=== PATIENT | male | born 1975 | race Caucasian/White ===

== ENCOUNTER 2018-03-20 17:31 | Emergency (ER) | payer OTHER ==
[~2018-03-20] VITALS: Ht 170.2 cm; Wt 72.6 kg
[~2018-03-20 17:31] MED LIST: CHLO25 PO; CLIN300 PO; CYCL10 PO; HYDACE5 PO; Hair, Skin & N1 EACH PO; IBUP800 PO; LEVE500 PO; LEVFLO500 PO; LORA1 PO; NAPR500 PO; NAPROXEN; Norco 7.5-3251 EACH PO; ROXICODONE5 MG PO; SEIZURE MED; Ultram50 MG PO
[2018-03-20] MEDS ORDERED: IBUP400 PO (18:21)
== END 2018-03-20 19:03 | disposition home or self-care (01) ==
LOC: ER 17:31
DX: M79.644 Pain in right finger(s) (principal); M79.89 Other specified soft tissue disorders; G40.909 Epilepsy, unspecified, not intractable, without status epilepticus; F17.200 Nicotine dependence, unspecified, uncomplicated; Z79.899 Other long term (current) drug therapy
CPT/HCPCS: 73130

== ENCOUNTER 2018-06-13 10:58 | Emergency (ER) | payer OTHER ==
[~2018-06-13] VITALS: Ht 170.2 cm; Wt 72.6 kg
[~2018-06-13 10:58] MED LIST changes: +IBUP400 PO
[2018-06-13] MEDS ORDERED: Baclofen10 MG PO (11:54)
[2018-06-13] MEDS ORDERED: Ultram50 MG PO (11:54)
== END 2018-06-13 12:05 | disposition home or self-care (01) ==
LOC: ER 10:58
DX: S29.012A Strain of muscle and tendon of back wall of thorax, initial encounter (principal); Z87.891 Personal history of nicotine dependence; X58.XXXA Exposure to other specified factors, initial encounter
CPT/HCPCS: 99282

== ENCOUNTER 2019-07-26 07:43 | Emergency (ER) | payer OTHER ==
[~2019-07-26] VITALS: Ht 170.2 cm; Wt 79.4 kg
[~2019-07-26 07:43] MED LIST changes: +Baclofen10 MG PO; +Keppra750 MG PO
[2019-07-26] MEDS ORDERED: Ultram50 MG PO (07:57)
[2019-07-26] MEDS ORDERED: CYCL10 PO (07:58)
[2019-07-26] MEDS ORDERED: Robaxin750 MG PO (07:58)
[2019-07-26 08:44] LABS: BASOPHILS ABSOLUTE AUTO 0.09 K/mm3 (0.00-0.23); BASOPHILS PERCENT AUTO 0 % (0-2); EOSINOPHILS PERCENT AUTO 0 % (0-6); Hematocrit 45.4 % (37.0-53.0); Hemoglobin 16.1 g/dL (13.5-17.5); IMMATURE GRAN ABSOLUTE AUTO 0.17 K/mm3 (0.00-0.10); IMMATURE GRAN PERCENT AUTO 1 % (0-1); LYMPHOCYTES ABSOLUTE AUTO 1.36 K/mm3 (0.84-5.20); LYMPHOCYTES PERCENT AUTO 5 % (21-46); MONOCYTES ABSOLUTE AUTO 1.39 K/mm3 (0.16-1.47); MONOCYTES PERCENT AUTO 5 % (4-13); Mean Corpuscular HGB 31.5 pg (26.0-34.0); Mean Corpuscular HGB Conc 35.5 g/dL (31.5-36.5); Mean Corpuscular Volume 89 fL (80-100); Mean Platelet Volume 9.1 fL (9.1-12.4); NEUTROPHILS ABSOLUTE AUTO 22.65 K/mm3 (1.96-9.15); NEUTROPHILS PERCENT AUTO 88 % (41-73); Platelet Count 458 K/mm3 (150-400); RDW Coefficient Variation 11.3 % (11.7-14.2); RDW Standard Deviation 36.4 fL (35.1-46.3); Red Blood Cell Count 5.11 M/mm3 (4.30-5.90); White Blood Cell Count 25.66 K/mm3 (4.00-11.30)
[2019-07-26 09:07] LABS: Alanine Aminotransfer (ALT/SGP 47 U/L (12-78); Albumin, Blood 4.4 g/dL (3.4-5.0); Albumin/Globulin Ratio 1.3 (0.8-1.8); Alk Phos 103 U/L (50-136); Anion Gap 10 mmol/L (6-16); Aspartate Aminotrans (AST/SGOT 48 U/L (12-37); Bilirubin, Total 0.8 mg/dL (0.1-1.0); Blood Urea Nitrogen 11 mg/dL (8-24); Bun/Creatinine Ratio 10.5 (12.0-20.0); CO2, Blood 23 mmol/L (21-32); Calcium, Blood 8.3 mg/dL (8.5-10.1); Chloride, Blood 104 mmol/L (98-108); Creatinine, Blood 1.05 mg/dL (0.60-1.20); Ethanol (Alcohol), Blood, Med <3 mg/dL; Globulin, Blood 3.3 g/dL (2.2-4.0); Glomerular Filtration Rate >60 (60-); Glucose, Blood 110 mg/dL (70-99); Potassium, Blood 3.5 mmol/L (3.5-5.5); Sodium, Blood 137 mmol/L (136-145); Total Protein, Blood 7.7 g/dL (6.4-8.2)
== END 2019-07-26 10:30 | disposition home or self-care (01) ==
LOC: ER 07:43
PROVIDERS: Emergency Medicine
DX: G40.909 Epilepsy, unspecified, not intractable, without status epilepticus (principal); Z79.899 Other long term (current) drug therapy; Z79.891 Long term (current) use of opiate analgesic; Z87.891 Personal history of nicotine dependence
CPT/HCPCS: 36415; 80053; 85025; 93005; 93010; 96361; 96365; 99284-25; G0480; J1953; J7030

== ENCOUNTER 2020-07-24 16:59 | Inpatient (IN) | payer OTHER ==
[~2020-07-24] VITALS: Ht 170.2 cm; Wt 71.9 kg
[~2020-07-24 16:59] MED LIST changes: +Robaxin750 MG PO
[2020-07-24 17:47] LABS: BASOPHILS ABSOLUTE AUTO 0.04 K/mm3 (0.00-0.23); BASOPHILS PERCENT AUTO 1 % (0-2); EOSINOPHILS ABSOLUTE AUTO 0.02 K/mm3 (0.00-0.68); EOSINOPHILS PERCENT AUTO 0 % (0-6); Hematocrit 38.1 % (37.0-53.0); Hemoglobin 13.3 g/dL (13.5-17.5); IMMATURE GRAN ABSOLUTE AUTO 0.44 K/mm3 (0.00-0.10); IMMATURE GRAN PERCENT AUTO 5 % (0-1); LYMPHOCYTES ABSOLUTE AUTO 1.01 K/mm3 (0.84-5.20); LYMPHOCYTES PERCENT AUTO 12 % (21-46); MONOCYTES ABSOLUTE AUTO 0.51 K/mm3 (0.16-1.47); MONOCYTES PERCENT AUTO 6 % (4-13); Mean Corpuscular HGB 36.1 pg (26.0-34.0); Mean Corpuscular HGB Conc 34.9 g/dL (31.5-36.5); Mean Corpuscular Volume 104 fL (80-100); Mean Platelet Volume 11.1 fL (9.1-12.4); NEUTROPHILS ABSOLUTE AUTO 6.71 K/mm3 (1.96-9.15); NEUTROPHILS PERCENT AUTO 77 % (41-73); NRBC ABSOLUTE 0.06 K/mm3 (0.00-0.02); NRBC Auto 0.7 /100 WBC (0.0-0.2); Platelet Count 144 K/mm3 (150-400); RDW Coefficient Variation 15.5 % (11.7-14.2); RDW Standard Deviation 59.4 fL (35.1-46.3); Red Blood Cell Count 3.68 M/mm3 (4.30-5.90); White Blood Cell Count 8.73 K/mm3 (4.00-11.30)
[2020-07-24] MEDS ORDERED: NEURONTIN300 MG PO (18:56)
[2020-07-24] MEDS ORDERED: Mobic15 MG PO (18:56)
[2020-07-24] MEDS ORDERED: GABA300 PO (18:56)
[2020-07-24 19:32] LABS: Albumin, Blood 2.8 g/dL (3.4-5.0); Albumin/Globulin Ratio 0.8 (0.8-1.8); Bilirubin, Direct 32.5 mg/dL (0.0-0.3); Bilirubin, Indirect 7.3 mg/dL (0.1-0.7); Bilirubin, Total 39.8 mg/dL (0.1-1.0); Bun/Creatinine Ratio 10.6 (12.0-20.0); Creatinine, Blood 1.6 mg/dL (0.60-1.20); Globulin, Blood 3.3 g/dL (2.2-4.0); Potassium, Blood 4.2 mmol/L (3.5-5.5); Total Protein, Blood 6.1 g/dL (6.4-8.2)
[2020-07-24 22:26] LABS: International Normalized Ratio 1.49; Prothrombin Time Results 15.6 Sec (9.7-11.5)
[2020-07-25 03:56] LABS: BASOPHILS ABSOLUTE AUTO 0.04 K/mm3 (0.00-0.23); BASOPHILS PERCENT AUTO 0 % (0-2); EOSINOPHILS ABSOLUTE AUTO 0.01 K/mm3 (0.00-0.68); EOSINOPHILS PERCENT AUTO 0 % (0-6); Hematocrit 29.9 % (37.0-53.0); Hemoglobin 10.5 g/dL (13.5-17.5); IMMATURE GRAN ABSOLUTE AUTO 0.46 K/mm3 (0.00-0.10); IMMATURE GRAN PERCENT AUTO 4 % (0-1); LYMPHOCYTES ABSOLUTE AUTO 1.23 K/mm3 (0.84-5.20); LYMPHOCYTES PERCENT AUTO 11 % (21-46); MONOCYTES ABSOLUTE AUTO 1.01 K/mm3 (0.16-1.47); MONOCYTES PERCENT AUTO 9 % (4-13); Mean Corpuscular HGB 36.5 pg (26.0-34.0); Mean Corpuscular HGB Conc 35.1 g/dL (31.5-36.5); Mean Corpuscular Volume 104 fL (80-100); Mean Platelet Volume 11.6 fL (9.1-12.4); NEUTROPHILS PERCENT AUTO 75 % (41-73); NRBC ABSOLUTE 0.07 K/mm3 (0.00-0.02); NRBC Auto 0.6 /100 WBC (0.0-0.2); Platelet Count 109 K/mm3 (150-400); RDW Coefficient Variation 15.2 % (11.7-14.2); RDW Standard Deviation 57.3 fL (35.1-46.3); Red Blood Cell Count 2.88 M/mm3 (4.30-5.90); White Blood Cell Count 11.15 K/mm3 (4.00-11.30)
[2020-07-25 04:31] LABS: Albumin, Blood 2.2 g/dL (3.4-5.0); Albumin/Globulin Ratio 0.9 (0.8-1.8); Bilirubin, Total 33.3 mg/dL (0.1-1.0); Bun/Creatinine Ratio 11.9 (12.0-20.0); Calcium, Blood 7.8 mg/dL (8.5-10.1); Creatinine, Blood 1.85 mg/dL (0.60-1.20); Globulin, Blood 2.4 g/dL (2.2-4.0); Potassium, Blood 4.3 mmol/L (3.5-5.5); Total Protein, Blood 4.6 g/dL (6.4-8.2)
[2020-07-25 12:48] LABS: Alanine Aminotransfer (ALT/SGP 124 U/L (12-78); Albumin, Blood 2.2 g/dL (3.4-5.0); Albumin/Globulin Ratio 0.8 (0.8-1.8); Alk Phos 318 U/L (50-136); Anion Gap 15 mmol/L (6-16); Aspartate Aminotrans (AST/SGOT 350 U/L (12-37); Blood Urea Nitrogen 22 mg/dL (8-24); CO2, Blood 16 mmol/L (21-32); Calcium, Blood 7.8 mg/dL (8.5-10.1); Chloride, Blood 86 mmol/L (98-108); Creatinine, Blood 2.21 mg/dL (0.60-1.20); Globulin, Blood 2.7 g/dL (2.2-4.0); Glomerular Filtration Rate 35 (60-); Glucose, Blood 65 mg/dL (70-99); Potassium, Blood 4.8 mmol/L (3.5-5.5); Sodium, Blood 117 mmol/L (136-145); Total Protein, Blood 4.9 g/dL (6.4-8.2)
[2020-07-25 16:00] LABS: Source, Urine Catheter
[2020-07-25 17:04] LABS: Blood, Urine 2+ (Neg); Glucose Qualitative, Urine Neg (Neg); Ketones, Urine 2+ (Neg); Leukocyte Esterase, Urine 1+ (Neg); Nitrite, Urine Pos (Neg); Protein, Urine 2+ (Neg); Specific Gravity, Urine 1.015 (1.003-1.022); Urobilinogen, Urine 3+ (Normal)
[2020-07-25 17:07] LABS: Bilirubin, Urine 3+ (Neg); Color, Urine Amber (P-Yellow)
[2020-07-25 17:10] LABS: Bacteria Rare /hpf; Red Blood Cells, Urine 0-2 /hpf (0-2); Squamous Epithelial Cells Not Seen /hpf (Few); White Blood Cells, Urine 0-2 /hpf (0-5)
[2020-07-25 17:11] LABS: Amorphous Light (0-Heavy)
[2020-07-25 17:14] LABS: Appearance, Urine Turbid (Clear)
[2020-07-25 18:50] LABS: Albumin, Blood 2.2 g/dL (3.4-5.0); Albumin/Globulin Ratio 0.8 (0.8-1.8); Bilirubin, Total 34.5 mg/dL (0.1-1.0); Bun/Creatinine Ratio 10.4 (12.0-20.0); Calcium, Blood 7.8 mg/dL (8.5-10.1); Creatinine, Blood 2.4 mg/dL (0.60-1.20); Globulin, Blood 2.7 g/dL (2.2-4.0); Potassium, Blood 5.1 mmol/L (3.5-5.5); Total Protein, Blood 4.9 g/dL (6.4-8.2)
[2020-07-25 23:44] LABS: Albumin, Blood 2.1 g/dL (3.4-5.0); Albumin/Globulin Ratio 0.9 (0.8-1.8); Bun/Creatinine Ratio 11.2 (12.0-20.0); Calcium, Blood 7.5 mg/dL (8.5-10.1); Creatinine, Blood 2.4 mg/dL (0.60-1.20); Globulin, Blood 2.3 g/dL (2.2-4.0); Potassium, Blood 4.2 mmol/L (3.5-5.5); Total Protein, Blood 4.4 g/dL (6.4-8.2)
[2020-07-26 06:11] LABS: Albumin/Globulin Ratio 0.8 (0.8-1.8); Bilirubin, Total 31.1 mg/dL (0.1-1.0); Bun/Creatinine Ratio 11.2 (12.0-20.0); Calcium, Blood 7.5 mg/dL (8.5-10.1); Creatinine, Blood 2.5 mg/dL (0.60-1.20); Globulin, Blood 2.4 g/dL (2.2-4.0); Potassium, Blood 4.3 mmol/L (3.5-5.5); Total Protein, Blood 4.4 g/dL (6.4-8.2)
[2020-07-26 08:09] LABS: HBSAG SCREEN Negative (Negative); HEP A AB, IGM Negative (Negative); HEP B CORE AB, TOT Negative (Negative); HEP C VIRUS AB <0.1 (0.0-0.9)
[2020-07-26 08:09] LABS: HBSAG SCREEN Negative (Negative); HEP A AB, IGM Negative (Negative); HEP B CORE AB, IGM Negative (Negative); HEP C VIRUS AB <0.1 (0.0-0.9)
[2020-07-26 11:57] LABS: Albumin/Globulin Ratio 0.8 (0.8-1.8); Bun/Creatinine Ratio 12.1 (12.0-20.0); Calcium, Blood 7.3 mg/dL (8.5-10.1); Creatinine, Blood 2.48 mg/dL (0.60-1.20); Globulin, Blood 2.6 g/dL (2.2-4.0); Potassium, Blood 4.9 mmol/L (3.5-5.5); Total Protein, Blood 4.6 g/dL (6.4-8.2)
[2020-07-26 12:22] LABS: Bilirubin, Total 31.3 mg/dL (0.1-1.0)
[2020-07-26 18:20] LABS: Uric Acid, Blood 2.9 mg/dL (3.5-7.2)
[2020-07-26 18:22] LABS: Anion Gap 12 mmol/L (6-16); Blood Urea Nitrogen 30 mg/dL (8-24); Bun/Creatinine Ratio 11.7 (12.0-20.0); CO2, Blood 15 mmol/L (21-32); Calcium, Blood 7.2 mg/dL (8.5-10.1); Chloride, Blood 97 mmol/L (98-108); Creatinine, Blood 2.56 mg/dL (0.60-1.20); Glomerular Filtration Rate 29 (60-); Glucose, Blood 111 mg/dL (70-99); Phosphorus, Blood 2.1 mg/dL (2.5-4.9); Potassium, Blood 4.7 mmol/L (3.5-5.5); Sodium, Blood 124 mmol/L (136-145); Thyroid Stimulating Hormone 0.124 uIU/mL (0.360-4.800)
[2020-07-26 19:06] LABS: Osmolality, Serum 258 mos/KG (275-300)
[2020-07-26 19:09] LABS: PCO2 Arterial 35.7 mmHg (35-45); PO2 Arterial 70.9 mmHg (80-100); pH Blood Arterial 7.32 (7.35-7.45)
[2020-07-26 19:23] LABS: Bun/Creatinine Ratio 12.2 (12.0-20.0); Calcium, Blood 7.4 mg/dL (8.5-10.1); Creatinine, Blood 2.55 mg/dL (0.60-1.20); Potassium, Blood 4.8 mmol/L (3.5-5.5)
[2020-07-26 19:26] LABS: Albumin/Globulin Ratio 0.8 (0.8-1.8); Bilirubin, Total 31.9 mg/dL (0.1-1.0); Globulin, Blood 2.5 g/dL (2.2-4.0); Total Protein, Blood 4.5 g/dL (6.4-8.2)
[2020-07-27 00:19] LABS: Albumin, Blood 1.9 g/dL (3.4-5.0); Albumin/Globulin Ratio 0.8 (0.8-1.8); Bilirubin, Total 31.3 mg/dL (0.1-1.0); Bun/Creatinine Ratio 11.7 (12.0-20.0); Calcium, Blood 7.4 mg/dL (8.5-10.1); Creatinine, Blood 2.82 mg/dL (0.60-1.20); Globulin, Blood 2.4 g/dL (2.2-4.0); Potassium, Blood 4.4 mmol/L (3.5-5.5); Total Protein, Blood 4.3 g/dL (6.4-8.2)
[2020-07-27 04:56] LABS: Hematocrit 29.4 % (37.0-53.0); Hemoglobin 10.1 g/dL (13.5-17.5)
[2020-07-27 05:22] LABS: Albumin, Blood 1.9 g/dL (3.4-5.0); Albumin/Globulin Ratio 0.9 (0.8-1.8); Bun/Creatinine Ratio 11.7 (12.0-20.0); Calcium, Blood 7.2 mg/dL (8.5-10.1); Creatinine, Blood 2.99 mg/dL (0.60-1.20); Free Thyroxine 1.09 ng/dL (0.70-1.60); Globulin, Blood 2.2 g/dL (2.2-4.0); Magnesium, Blood 2.4 mg/dL (1.6-2.4); Phosphorus, Blood 2.2 mg/dL (2.5-4.9); Potassium, Blood 4.2 mmol/L (3.5-5.5); Thyroid Stimulating Hormone 0.084 uIU/mL (0.360-4.800); Total Protein, Blood 4.1 g/dL (6.4-8.2); Triiodothyronine, Free 1.54 pg/mL (2.18-3.98)
[2020-07-27 05:37] LABS: Bilirubin, Total 29.7 mg/dL (0.1-1.0)
[2020-07-27 11:33] LABS: Albumin, Blood 1.8 g/dL (3.4-5.0); Albumin/Globulin Ratio 0.9 (0.8-1.8); Bun/Creatinine Ratio 10.5 (12.0-20.0); Calcium, Blood 7.1 mg/dL (8.5-10.1); Creatinine, Blood 3.33 mg/dL (0.60-1.20); Globulin, Blood 2.1 g/dL (2.2-4.0); Total Protein, Blood 3.9 g/dL (6.4-8.2)
[2020-07-27 11:38] LABS: Bilirubin, Total 28.2 mg/dL (0.1-1.0)
[2020-07-27 18:57] LABS: Albumin, Blood 2.3 g/dL (3.4-5.0); Bun/Creatinine Ratio 10.5 (12.0-20.0); Calcium, Blood 7.2 mg/dL (8.5-10.1); Creatinine, Blood 3.54 mg/dL (0.60-1.20); Potassium, Blood 4.2 mmol/L (3.5-5.5)
[2020-07-27 18:58] LABS: Albumin/Globulin Ratio 1.3 (0.8-1.8); Bilirubin, Total 30.4 mg/dL (0.1-1.0); Globulin, Blood 1.8 g/dL (2.2-4.0); Total Protein, Blood 4.1 g/dL (6.4-8.2)
[2020-07-27 22:58] LABS: Albumin, Blood 2.6 g/dL (3.4-5.0); Albumin/Globulin Ratio 1.7 (0.8-1.8); Bilirubin, Total 29.8 mg/dL (0.1-1.0); Bun/Creatinine Ratio 11.6 (12.0-20.0); Calcium, Blood 7.1 mg/dL (8.5-10.1); Creatinine, Blood 3.36 mg/dL (0.60-1.20); Globulin, Blood 1.5 g/dL (2.2-4.0); Total Protein, Blood 4.1 g/dL (6.4-8.2)
[2020-07-28 04:19] LABS: Hematocrit 27.4 % (37.0-53.0); Hemoglobin 9.3 g/dL (13.5-17.5)
[2020-07-28 04:46] LABS: Albumin, Blood 2.4 g/dL (3.4-5.0); Albumin/Globulin Ratio 1.6 (0.8-1.8); Bun/Creatinine Ratio 11.9 (12.0-20.0); Calcium, Blood 7.1 mg/dL (8.5-10.1); Creatinine, Blood 3.37 mg/dL (0.60-1.20); Globulin, Blood 1.5 g/dL (2.2-4.0); Magnesium, Blood 2.3 mg/dL (1.6-2.4); Phosphorus, Blood 2.8 mg/dL (2.5-4.9); Potassium, Blood 4.3 mmol/L (3.5-5.5); Total Protein, Blood 3.9 g/dL (6.4-8.2)
[2020-07-28 05:15] LABS: Bilirubin, Total 30.8 mg/dL (0.1-1.0)
[2020-07-28 11:42] LABS: Albumin, Blood 2.6 g/dL (3.4-5.0); Bilirubin, Total 30.8 mg/dL (0.1-1.0); Bun/Creatinine Ratio 11.3 (12.0-20.0); Calcium, Blood 7.4 mg/dL (8.5-10.1); Creatinine, Blood 3.63 mg/dL (0.60-1.20); Globulin, Blood 1.3 g/dL (2.2-4.0); Potassium, Blood 4.4 mmol/L (3.5-5.5); Total Protein, Blood 3.9 g/dL (6.4-8.2)
[2020-07-28 14:46] LABS: PCO2 Arterial 34.9 mmHg (35-45); pH Blood Arterial 7.35 (7.35-7.45)
[2020-07-28 15:07] LABS: Source, Urine Urostomy Bag
[2020-07-28 15:17] LABS: Appearance, Urine Hazy (Clear); Blood, Urine 4+ (Neg); Color, Urine Amber (P-Yellow); Glucose Qualitative, Urine Neg (Neg); Ketones, Urine Neg (Neg); Leukocyte Esterase, Urine 1+ (Neg); Nitrite, Urine Neg (Neg); Protein, Urine 3+ (Neg); Specific Gravity, Urine 1.015 (1.003-1.022); Urobilinogen, Urine 2+ (Normal)
[2020-07-28 15:24] LABS: BASOPHILS ABSOLUTE AUTO 0.05 K/mm3 (0.00-0.23); BASOPHILS PERCENT AUTO 0 % (0-2); Hematocrit 27.8 % (37.0-53.0); Hemoglobin 9.2 g/dL (13.5-17.5); Mean Corpuscular HGB 35.9 pg (26.0-34.0); Mean Corpuscular HGB Conc 33.1 g/dL (31.5-36.5); Mean Corpuscular Volume 109 fL (80-100); Mean Platelet Volume 11.2 fL (9.1-12.4); NRBC Auto 0.9 /100 WBC (0.0-0.2); Platelet Count 99 K/mm3 (150-400); RDW Coefficient Variation 15.8 % (11.7-14.2); Red Blood Cell Count 2.56 M/mm3 (4.30-5.90); White Blood Cell Count 11.17 K/mm3 (4.00-11.30)
[2020-07-28 15:31] LABS: Bilirubin, Urine 3+ (Neg)
[2020-07-28 15:33] LABS: EOSINOPHILS ABSOLUTE AUTO 0.04 K/mm3 (0.00-0.68); EOSINOPHILS PERCENT AUTO 0 % (0-6); IMMATURE GRAN ABSOLUTE AUTO 0.14 K/mm3 (0.00-0.10); IMMATURE GRAN PERCENT AUTO 1 % (0-1); LYMPHOCYTES ABSOLUTE AUTO 0.67 K/mm3 (0.84-5.20); LYMPHOCYTES PERCENT AUTO 6 % (21-46); MONOCYTES ABSOLUTE AUTO 0.63 K/mm3 (0.16-1.47); MONOCYTES PERCENT AUTO 6 % (4-13); NEUTROPHILS ABSOLUTE AUTO 9.64 K/mm3 (1.96-9.15); NEUTROPHILS PERCENT AUTO 86 % (41-73)
[2020-07-28 16:03] LABS: Amorphous Mod (0-Heavy); Mucus Mod (0-Heavy)
[2020-07-28 16:04] LABS: Squamous Epithelial Cells Few /hpf (Few)
[2020-07-28 16:05] LABS: Bacteria Few /hpf
[2020-07-28 16:22] LABS: BAND PERCENT MAN 3 % (0-8); BASOPHILS PERCENT MAN 0 % (0-2); EOSINOPHILS PERCENT MAN 0 % (0-6); LYMPHOCYTES PERCENT MAN 9 % (21-46); MONOCYTES ABSOLUTE MAN 0.22 K/mm3 (0.16-1.47); MONOCYTES PERCENT MAN 2 % (4-13); NEUTROPHILS ABSOLUTE MAN 9.94 K/mm3 (1.96-9.15); SEG NEUTROPHILS PERCENT MAN 86 % (41-73); TOTAL CELLS COUNTED 100
[2020-07-28 16:27] LABS: International Normalized Ratio 2.25
[2020-07-28 18:05] LABS: Base Excess Venous -8.2 mmol/L; Bicarbonate Venous 18.2 mmol/L (24.0-30.0); PCO2 Venous 37.3 mmHg (38-42)
[2020-07-28 19:09] LABS: Albumin, Blood 2.4 g/dL (3.4-5.0); Bun/Creatinine Ratio 12.5 (12.0-20.0); Calcium, Blood 7.2 mg/dL (8.5-10.1); Creatinine, Blood 3.44 mg/dL (0.60-1.20); Potassium, Blood 4.3 mmol/L (3.5-5.5)
[2020-07-28 19:15] LABS: Albumin/Globulin Ratio 1.6 (0.8-1.8); Bilirubin, Total 29.5 mg/dL (0.1-1.0); Globulin, Blood 1.5 g/dL (2.2-4.0); Total Protein, Blood 3.9 g/dL (6.4-8.2)
[2020-07-29 01:08] LABS: Albumin, Blood 2.6 g/dL (3.4-5.0); Albumin/Globulin Ratio 1.9 (0.8-1.8); Creatinine, Blood 3.29 mg/dL (0.60-1.20); Globulin, Blood 1.4 g/dL (2.2-4.0); Potassium, Blood 4.6 mmol/L (3.5-5.5)
[2020-07-29 03:31] LABS: Hematocrit 26.7 % (37.0-53.0); Hemoglobin 8.8 g/dL (13.5-17.5)
[2020-07-29 03:34] LABS: Base Excess Venous -8.1 mmol/L; Bicarbonate Venous 18.3 mmol/L (24.0-30.0); PCO2 Venous 36.8 mmHg (38-42); PO2 Venous 132 mmHg (38-42)
[2020-07-29 04:32] LABS: Albumin, Blood 2.4 g/dL (3.4-5.0); Albumin/Globulin Ratio 1.6 (0.8-1.8); Calcium, Blood 7.1 mg/dL (8.5-10.1); Creatinine, Blood 3.35 mg/dL (0.60-1.20); Globulin, Blood 1.5 g/dL (2.2-4.0); Magnesium, Blood 2.4 mg/dL (1.6-2.4); Potassium, Blood 4.7 mmol/L (3.5-5.5); Total Protein, Blood 3.9 g/dL (6.4-8.2)
[2020-07-29 04:52] LABS: Bilirubin, Total 27.7 mg/dL (0.1-1.0)
[2020-07-29 08:11] LABS: PCO2 Arterial 32.8 mmHg (35-45); PO2 Arterial 75.5 mmHg (80-100); pH Blood Arterial 7.35 (7.35-7.45)
[2020-07-29 12:32] LABS: Albumin, Blood 2.7 g/dL (3.4-5.0); Albumin/Globulin Ratio 1.9 (0.8-1.8); Bun/Creatinine Ratio 14.3 (12.0-20.0); Calcium, Blood 7.3 mg/dL (8.5-10.1); Creatinine, Blood 3.35 mg/dL (0.60-1.20); Globulin, Blood 1.4 g/dL (2.2-4.0); Potassium, Blood 4.5 mmol/L (3.5-5.5); Total Protein, Blood 4.1 g/dL (6.4-8.2)
[2020-07-30 03:44] LABS: Hematocrit 26.7 % (37.0-53.0); Mean Corpuscular HGB 37.3 pg (26.0-34.0); Mean Corpuscular HGB Conc 33.7 g/dL (31.5-36.5); Mean Corpuscular Volume 111 fL (80-100); Mean Platelet Volume 11.2 fL (9.1-12.4); NRBC ABSOLUTE 0.22 K/mm3 (0.00-0.02); Platelet Count 79 K/mm3 (150-400); RDW Coefficient Variation 17.1 % (11.7-14.2); RDW Standard Deviation 66.7 fL (35.1-46.3); Red Blood Cell Count 2.41 M/mm3 (4.30-5.90); White Blood Cell Count 21.68 K/mm3 (4.00-11.30)
[2020-07-30 05:23] LABS: BAND PERCENT MAN 2 % (0-8); BASOPHILS PERCENT MAN 0 % (0-2); EOSINOPHILS PERCENT MAN 0 % (0-6); LYMPHOCYTES ABSOLUTE MAN 0.86 K/mm3 (0.84-5.20); LYMPHOCYTES PERCENT MAN 4 % (21-46); METAMYELOCYTE ABSOLUTE MAN 0.43 K/mm3 (0.00-0.00); METAMYELOCYTE PERCENT MAN 2 % (0-0); MONOCYTES ABSOLUTE MAN 1.73 K/mm3 (0.16-1.47); MONOCYTES PERCENT MAN 8 % (4-13); NEUTROPHILS ABSOLUTE MAN 18.64 K/mm3 (1.96-9.15); SEG NEUTROPHILS PERCENT MAN 84 % (41-73); TOTAL CELLS COUNTED 100
[2020-07-30 09:42] LABS: Albumin, Blood 2.4 g/dL (3.4-5.0); Albumin/Globulin Ratio 1.8 (0.8-1.8); Bilirubin, Total 29.1 mg/dL (0.1-1.0); Bun/Creatinine Ratio 17.4 (12.0-20.0); Calcium, Blood 7.2 mg/dL (8.5-10.1); Creatinine, Blood 3.51 mg/dL (0.60-1.20); Globulin, Blood 1.3 g/dL (2.2-4.0); Total Protein, Blood 3.7 g/dL (6.4-8.2)
[2020-07-30 17:33] LABS: Automated BF RBC Count 0.008 M/mm3 (0-0); Automated BF WBC Count 0.159 K/mm3 (0-999); Body Fluid WBC Count 159 /mm3 (0-999); RBC Count, Body Fluid 8000 /mm3 (0-0)
[2020-07-30 18:01] LABS: Appearance, Body Fluid Cloudy (Clear); Total Cell Count, Body Fluid 100
[2020-07-31 03:23] LABS: BASOPHILS ABSOLUTE AUTO 0.08 K/mm3 (0.00-0.23); BASOPHILS PERCENT AUTO 0 % (0-2); Hematocrit 28.9 % (37.0-53.0); Hemoglobin 9.5 g/dL (13.5-17.5); LYMPHOCYTES ABSOLUTE AUTO 1.86 K/mm3 (0.84-5.20); LYMPHOCYTES PERCENT AUTO 6 % (21-46); MONOCYTES ABSOLUTE AUTO 2.92 K/mm3 (0.16-1.47); MONOCYTES PERCENT AUTO 10 % (4-13); Mean Corpuscular HGB 36.8 pg (26.0-34.0); Mean Corpuscular HGB Conc 32.9 g/dL (31.5-36.5); Mean Corpuscular Volume 112 fL (80-100); Mean Platelet Volume 11.8 fL (9.1-12.4); NRBC Auto 2.3 /100 WBC (0.0-0.2); RDW Coefficient Variation 17.9 % (11.7-14.2); RDW Standard Deviation 72.4 fL (35.1-46.3); Red Blood Cell Count 2.58 M/mm3 (4.30-5.90); White Blood Cell Count 29.91 K/mm3 (4.00-11.30)
[2020-07-31 03:26] LABS: EOSINOPHILS ABSOLUTE AUTO 0.05 K/mm3 (0.00-0.68); EOSINOPHILS PERCENT AUTO 0 % (0-6); IMMATURE GRAN ABSOLUTE AUTO 2.55 K/mm3 (0.00-0.10); IMMATURE GRAN PERCENT AUTO 9 % (0-1); NEUTROPHILS ABSOLUTE AUTO 22.45 K/mm3 (1.96-9.15); NEUTROPHILS PERCENT AUTO 75 % (41-73); Platelet Count 50 K/mm3 (150-400)
[2020-07-31 03:50] LABS: Magnesium, Blood 2.5 mg/dL (1.6-2.4)
[2020-07-31 03:58] LABS: Albumin, Blood 2.8 g/dL (3.4-5.0); Albumin/Globulin Ratio 3.1 (0.8-1.8); Bilirubin, Total 33.8 mg/dL (0.1-1.0); Bun/Creatinine Ratio 21.3 (12.0-20.0); Calcium, Blood 7.5 mg/dL (8.5-10.1); Creatinine, Blood 3.38 mg/dL (0.60-1.20); Globulin, Blood 0.9 g/dL (2.2-4.0); Potassium, Blood 3.7 mmol/L (3.5-5.5); Total Protein, Blood 3.7 g/dL (6.4-8.2)
[2020-07-31 05:20] LABS: BAND PERCENT MAN 2 % (0-8); BASOPHILS PERCENT MAN 0 % (0-2); EOSINOPHILS ABSOLUTE MAN 0.29 K/mm3 (0.00-0.68); EOSINOPHILS PERCENT MAN 1 % (0-6); LYMPHOCYTES ABSOLUTE MAN 2.09 K/mm3 (0.84-5.20); LYMPHOCYTES PERCENT MAN 7 % (21-46); METAMYELOCYTE ABSOLUTE MAN 0.29 K/mm3 (0.00-0.00); METAMYELOCYTE PERCENT MAN 1 % (0-0); MONOCYTES ABSOLUTE MAN 1.49 K/mm3 (0.16-1.47); MONOCYTES PERCENT MAN 5 % (4-13); MYELOCYTE ABSOLUTE MAN 1.19 K/mm3 (0.00-0.00); MYELOCYTE PERCENT MAN 4 % (0-0); NEUTROPHILS ABSOLUTE MAN 24.52 K/mm3 (1.96-9.15); SEG NEUTROPHILS PERCENT MAN 80 % (41-73); TOTAL CELLS COUNTED 100
[2020-08-01 03:35] LABS: Hematocrit 27.7 % (37.0-53.0); Mean Corpuscular HGB 37.3 pg (26.0-34.0); Mean Corpuscular HGB Conc 32.5 g/dL (31.5-36.5); Mean Corpuscular Volume 115 fL (80-100); Mean Platelet Volume 12.3 fL (9.1-12.4); NRBC ABSOLUTE 0.45 K/mm3 (0.00-0.02); NRBC Auto 1.6 /100 WBC (0.0-0.2); RDW Coefficient Variation 18.3 % (11.7-14.2); RDW Standard Deviation 76.5 fL (35.1-46.3); Red Blood Cell Count 2.41 M/mm3 (4.30-5.90)
[2020-08-01 03:37] LABS: Platelet Count 27 K/mm3 (150-400)
[2020-08-01 03:49] LABS: Albumin, Blood 2.9 g/dL (3.4-5.0); Anion Gap 11 mmol/L (6-16); Blood Urea Nitrogen 83 mg/dL (8-24); Bun/Creatinine Ratio 26.5 (12.0-20.0); CO2, Blood 20 mmol/L (21-32); Calcium, Blood 7.8 mg/dL (8.5-10.1); Chloride, Blood 111 mmol/L (98-108); Creatinine, Blood 3.13 mg/dL (0.60-1.20); Glomerular Filtration Rate 23 (60-); Glucose, Blood 107 mg/dL (70-99); Magnesium, Blood 2.5 mg/dL (1.6-2.4); Potassium, Blood 3.6 mmol/L (3.5-5.5); Sodium, Blood 142 mmol/L (136-145)
[2020-08-01 04:19] LABS: BAND PERCENT MAN 7 % (0-8); BASOPHILS PERCENT MAN 0 % (0-2); EOSINOPHILS PERCENT MAN 0 % (0-6); LYMPHOCYTES ABSOLUTE MAN 1.44 K/mm3 (0.84-5.20); LYMPHOCYTES PERCENT MAN 5 % (21-46); METAMYELOCYTE ABSOLUTE MAN 0.28 K/mm3 (0.00-0.00); METAMYELOCYTE PERCENT MAN 1 % (0-0); MONOCYTES ABSOLUTE MAN 1.44 K/mm3 (0.16-1.47); MONOCYTES PERCENT MAN 5 % (4-13); NEUTROPHILS ABSOLUTE MAN 25.72 K/mm3 (1.96-9.15); SEG NEUTROPHILS PERCENT MAN 82 % (41-73); TOTAL CELLS COUNTED 100
[2020-08-02 03:52] LABS: Hemoglobin 8.8 g/dL (13.5-17.5); Mean Corpuscular HGB 36.8 pg (26.0-34.0); Mean Corpuscular HGB Conc 31.4 g/dL (31.5-36.5); Mean Corpuscular Volume 117 fL (80-100); NRBC ABSOLUTE 0.27 K/mm3 (0.00-0.02); RDW Standard Deviation 79.7 fL (35.1-46.3); Red Blood Cell Count 2.39 M/mm3 (4.30-5.90); White Blood Cell Count 28.28 K/mm3 (4.00-11.30)
[2020-08-02 03:54] LABS: Platelet Count 31 K/mm3 (150-400)
[2020-08-02 04:06] LABS: International Normalized Ratio 2.25
[2020-08-02 04:18] LABS: Albumin, Blood 3.1 g/dL (3.4-5.0); Albumin/Globulin Ratio 3.1 (0.8-1.8); Calcium, Blood 8.3 mg/dL (8.5-10.1); Creatinine, Blood 3.19 mg/dL (0.60-1.20); Magnesium, Blood 2.7 mg/dL (1.6-2.4); Phosphorus, Blood 4.4 mg/dL (2.5-4.9); Total Protein, Blood 4.1 g/dL (6.4-8.2)
[2020-08-02 04:20] LABS: Bilirubin, Total 40.7 mg/dL (0.1-1.0)
[2020-08-02 04:38] LABS: BAND PERCENT MAN 6 % (0-8); BASOPHILS ABSOLUTE MAN 0.56 K/mm3 (0.00-0.23); BASOPHILS PERCENT MAN 2 % (0-2); EOSINOPHILS PERCENT MAN 0 % (0-6); LYMPHOCYTES ABSOLUTE MAN 1.69 K/mm3 (0.84-5.20); LYMPHOCYTES PERCENT MAN 6 % (21-46); METAMYELOCYTE ABSOLUTE MAN 0.28 K/mm3 (0.00-0.00); METAMYELOCYTE PERCENT MAN 1 % (0-0); MONOCYTES ABSOLUTE MAN 1.41 K/mm3 (0.16-1.47); MONOCYTES PERCENT MAN 5 % (4-13); NEUTROPHILS ABSOLUTE MAN 24.32 K/mm3 (1.96-9.15); SEG NEUTROPHILS PERCENT MAN 80 % (41-73); TOTAL CELLS COUNTED 100
[2020-08-03 03:20] LABS: Base Excess Venous -2.6 mmol/L; Bicarbonate Venous 22.4 mmol/L (24.0-30.0); PCO2 Venous 34.1 mmHg (38-42); PO2 Venous 50.8 mmHg (38-42); pH Blood Venous 7.42 (7.34-7.37)
[2020-08-03 03:23] LABS: BASOPHILS ABSOLUTE AUTO 0.13 K/mm3 (0.00-0.23); BASOPHILS PERCENT AUTO 1 % (0-2); EOSINOPHILS ABSOLUTE AUTO 0.22 K/mm3 (0.00-0.68); EOSINOPHILS PERCENT AUTO 1 % (0-6); Hematocrit 29.2 % (37.0-53.0); Hemoglobin 9.2 g/dL (13.5-17.5); IMMATURE GRAN ABSOLUTE AUTO 1.57 K/mm3 (0.00-0.10); IMMATURE GRAN PERCENT AUTO 6 % (0-1); LYMPHOCYTES ABSOLUTE AUTO 1.68 K/mm3 (0.84-5.20); LYMPHOCYTES PERCENT AUTO 6 % (21-46); MONOCYTES ABSOLUTE AUTO 1.42 K/mm3 (0.16-1.47); MONOCYTES PERCENT AUTO 5 % (4-13); Mean Corpuscular HGB 37.1 pg (26.0-34.0); Mean Corpuscular HGB Conc 31.5 g/dL (31.5-36.5); Mean Corpuscular Volume 118 fL (80-100); Mean Platelet Volume 12.5 fL (9.1-12.4); NEUTROPHILS ABSOLUTE AUTO 22.62 K/mm3 (1.96-9.15); NEUTROPHILS PERCENT AUTO 82 % (41-73); NRBC ABSOLUTE 0.11 K/mm3 (0.00-0.02); NRBC Auto 0.4 /100 WBC (0.0-0.2); RDW Coefficient Variation 19.4 % (11.7-14.2); RDW Standard Deviation 82.2 fL (35.1-46.3); Red Blood Cell Count 2.48 M/mm3 (4.30-5.90); White Blood Cell Count 27.64 K/mm3 (4.00-11.30)
[2020-08-03 03:25] LABS: Platelet Count 39 K/mm3 (150-400)
[2020-08-03 03:35] LABS: International Normalized Ratio 2.41; Prothrombin Time Results 24.5 Sec (9.7-11.5)
[2020-08-03 03:52] LABS: BAND PERCENT MAN 3 % (0-8); BASOPHILS PERCENT MAN 0 % (0-2); EOSINOPHILS PERCENT MAN 0 % (0-6); LYMPHOCYTES ABSOLUTE MAN 2.21 K/mm3 (0.84-5.20); LYMPHOCYTES PERCENT MAN 8 % (21-46); METAMYELOCYTE ABSOLUTE MAN 0.27 K/mm3 (0.00-0.00); METAMYELOCYTE PERCENT MAN 1 % (0-0); MONOCYTES ABSOLUTE MAN 0.55 K/mm3 (0.16-1.47); MONOCYTES PERCENT MAN 2 % (4-13); NEUTROPHILS ABSOLUTE MAN 24.59 K/mm3 (1.96-9.15); SEG NEUTROPHILS PERCENT MAN 86 % (41-73); TOTAL CELLS COUNTED 100
[2020-08-03 04:14] LABS: Albumin/Globulin Ratio 4.1 (0.8-1.8); Globulin, Blood 0.8 g/dL (2.2-4.0); Total Protein, Blood 4.1 g/dL (6.4-8.2)
[2020-08-03 04:17] LABS: Bilirubin, Total 42.4 mg/dL (0.1-1.0)
[2020-08-03 04:21] LABS: Albumin, Blood 3.3 g/dL (3.4-5.0); Bun/Creatinine Ratio 36.7 (12.0-20.0); Calcium, Blood 8.3 mg/dL (8.5-10.1); Creatinine, Blood 3.13 mg/dL (0.60-1.20); Magnesium, Blood 2.7 mg/dL (1.6-2.4); Phosphorus, Blood 3.5 mg/dL (2.5-4.9); Potassium, Blood 2.9 mmol/L (3.5-5.5)
[2020-08-03 14:21] LABS: Calcium, Blood 8.4 mg/dL (8.5-10.1); Creatinine, Blood 3.05 mg/dL (0.60-1.20)
[2020-08-04 03:34] LABS: BASOPHILS ABSOLUTE AUTO 0.14 K/mm3 (0.00-0.23); BASOPHILS PERCENT AUTO 1 % (0-2); EOSINOPHILS PERCENT AUTO 1 % (0-6); IMMATURE GRAN ABSOLUTE AUTO 1.22 K/mm3 (0.00-0.10); IMMATURE GRAN PERCENT AUTO 5 % (0-1); LYMPHOCYTES ABSOLUTE AUTO 2.21 K/mm3 (0.84-5.20); LYMPHOCYTES PERCENT AUTO 8 % (21-46); MONOCYTES ABSOLUTE AUTO 1.67 K/mm3 (0.16-1.47); MONOCYTES PERCENT AUTO 6 % (4-13); Mean Corpuscular HGB 37.5 pg (26.0-34.0); Mean Corpuscular HGB Conc 31.3 g/dL (31.5-36.5); Mean Corpuscular Volume 120 fL (80-100); NEUTROPHILS ABSOLUTE AUTO 21.48 K/mm3 (1.96-9.15); NEUTROPHILS PERCENT AUTO 80 % (41-73); NRBC ABSOLUTE 0.11 K/mm3 (0.00-0.02); NRBC Auto 0.4 /100 WBC (0.0-0.2); Platelet Count 51 K/mm3 (150-400); RDW Coefficient Variation 19.7 % (11.7-14.2); RDW Standard Deviation 84.9 fL (35.1-46.3); Red Blood Cell Count 2.67 M/mm3 (4.30-5.90); White Blood Cell Count 27.02 K/mm3 (4.00-11.30)
[2020-08-04 03:35] LABS: Base Excess Venous -2.2 mmol/L; Bicarbonate Venous 22.7 mmol/L (24.0-30.0); PCO2 Venous 33.5 mmHg (38-42); PO2 Venous 49.1 mmHg (38-42); pH Blood Venous 7.43 (7.34-7.37)
[2020-08-04 03:46] LABS: International Normalized Ratio 2.39; Prothrombin Time Results 24.3 Sec (9.7-11.5)
[2020-08-04 03:58] LABS: Albumin, Blood 2.9 g/dL (3.4-5.0); Bun/Creatinine Ratio 40.2 (12.0-20.0); Calcium, Blood 8.3 mg/dL (8.5-10.1); Creatinine, Blood 3.11 mg/dL (0.60-1.20); Magnesium, Blood 2.5 mg/dL (1.6-2.4); Phosphorus, Blood 2.2 mg/dL (2.5-4.9); Potassium, Blood 3.3 mmol/L (3.5-5.5)
[2020-08-04 04:17] LABS: Albumin/Globulin Ratio 2.9 (0.8-1.8); Total Protein, Blood 3.9 g/dL (6.4-8.2)
[2020-08-04 04:30] LABS: Bilirubin, Total 41.5 mg/dL (0.1-1.0)
[2020-08-04 14:18] LABS: Source, Urine Catheter
[2020-08-04 14:31] LABS: Appearance, Urine Hazy (Clear); Blood, Urine 5+ (Neg); Color, Urine Amber (P-Yellow); Glucose Qualitative, Urine Neg (Neg); Ketones, Urine 1+ (Neg); Leukocyte Esterase, Urine 2+ (Neg); Nitrite, Urine Neg (Neg); Protein, Urine 2+ (Neg); Specific Gravity, Urine 1.015 (1.003-1.022); Urobilinogen, Urine 2+ (Normal)
[2020-08-04 14:32] LABS: Automated BF WBC Count 0.045 K/mm3 (0-999); Body Fluid WBC Count 45 /mm3 (0-999)
[2020-08-04 14:59] LABS: Bilirubin, Urine 3+ (Neg)
[2020-08-04 15:01] LABS: Red Blood Cells, Urine 25-50 /hpf (0-2)
[2020-08-04 15:03] LABS: Amorphous Light (0-Heavy); Bacteria Mod /hpf; Hyaline Casts 0-2 /lpf (0-2); Mucus Mod (0-Heavy); Squamous Epithelial Cells Few /hpf (Few); Transitional Epithelial Cells Few /hpf (0-Rare)
[2020-08-04 15:29] LABS: RBC Count, Body Fluid 184 /mm3 (0-0)
[2020-08-04 15:37] LABS: Total Cell Count, Body Fluid 100
[2020-08-04 15:38] LABS: Appearance, Body Fluid Clear (Clear); Color, Body Fluid Yellow (None-Yellow)
[2020-08-04 17:40] LABS: Phosphorus, Blood 3.5 mg/dL (2.5-4.9); Potassium, Blood 3.6 mmol/L (3.5-5.5)
[2020-08-05 03:35] LABS: Hematocrit 31.3 % (37.0-53.0); Hemoglobin 9.8 g/dL (13.5-17.5)
[2020-08-05 03:49] LABS: Albumin, Blood 2.3 g/dL (3.4-5.0); Anion Gap 11 mmol/L (6-16); Blood Urea Nitrogen 131 mg/dL (8-24); CO2, Blood 22 mmol/L (21-32); Chloride, Blood 115 mmol/L (98-108); Creatinine, Blood 3.64 mg/dL (0.60-1.20); Glomerular Filtration Rate 19 (60-); Glucose, Blood 155 mg/dL (70-99); Magnesium, Blood 2.3 mg/dL (1.6-2.4); Phosphorus, Blood 3.9 mg/dL (2.5-4.9); Potassium, Blood 3.5 mmol/L (3.5-5.5); Sodium, Blood 148 mmol/L (136-145)
[2020-08-06 04:09] LABS: BASOPHILS ABSOLUTE AUTO 0.28 K/mm3 (0.00-0.23); BASOPHILS PERCENT AUTO 1 % (0-2); EOSINOPHILS PERCENT AUTO 1 % (0-6); Hematocrit 30.7 % (37.0-53.0); Hemoglobin 9.8 g/dL (13.5-17.5); IMMATURE GRAN ABSOLUTE AUTO 1.38 K/mm3 (0.00-0.10); IMMATURE GRAN PERCENT AUTO 5 % (0-1); LYMPHOCYTES ABSOLUTE AUTO 2.06 K/mm3 (0.84-5.20); LYMPHOCYTES PERCENT AUTO 8 % (21-46); MONOCYTES ABSOLUTE AUTO 1.84 K/mm3 (0.16-1.47); MONOCYTES PERCENT AUTO 7 % (4-13); Mean Corpuscular HGB 37.7 pg (26.0-34.0); Mean Corpuscular HGB Conc 31.9 g/dL (31.5-36.5); Mean Corpuscular Volume 118 fL (80-100); NEUTROPHILS ABSOLUTE AUTO 21.23 K/mm3 (1.96-9.15); NEUTROPHILS PERCENT AUTO 78 % (41-73); NRBC ABSOLUTE 0.14 K/mm3 (0.00-0.02); NRBC Auto 0.5 /100 WBC (0.0-0.2); Platelet Count 76 K/mm3 (150-400); RDW Coefficient Variation 19.5 % (11.7-14.2); White Blood Cell Count 27.09 K/mm3 (4.00-11.30)
[2020-08-06 04:21] LABS: International Normalized Ratio 2.3; Mean Platelet Volume 14.8 fL (9.1-12.4); Prothrombin Time Results 23.5 Sec (9.7-11.5)
[2020-08-06 04:38] LABS: Alk Phos 114 U/L (50-136); Anion Gap 16 mmol/L (6-16); Aspartate Aminotrans (AST/SGOT 95 U/L (12-37); Blood Urea Nitrogen 145 mg/dL (8-24); Bun/Creatinine Ratio 33.3 (12.0-20.0); CO2, Blood 17 mmol/L (21-32); Calcium, Blood 7.3 mg/dL (8.5-10.1); Chloride, Blood 110 mmol/L (98-108); Creatinine, Blood 4.35 mg/dL (0.60-1.20); Glomerular Filtration Rate 16 (60-); Glucose, Blood 146 mg/dL (70-99); Magnesium, Blood 2.1 mg/dL (1.6-2.4); Phosphorus, Blood 4.6 mg/dL (2.5-4.9); Potassium, Blood 3.8 mmol/L (3.5-5.5); Sodium, Blood 143 mmol/L (136-145); Vancomycin, Random 24.7 ug/mL
[2020-08-06 04:55] LABS: Bilirubin, Total 32.7 mg/dL (0.1-1.0)
[2020-08-06 05:02] LABS: Alanine Aminotransfer (ALT/SGP 27 U/L (12-78)
[2020-08-06 05:28] LABS: Base Excess Venous -7.7 mmol/L; Bicarbonate Venous 18.5 mmol/L (24.0-30.0); PCO2 Venous 29.5 mmHg (38-42); pH Blood Venous 7.38 (7.34-7.37)
[2020-08-06 07:10] LABS: PCO2 Arterial 27.6 mmHg (35-45); PO2 Arterial 90.6 mmHg (80-100); pH Blood Arterial 7.38 (7.35-7.45)
[2020-08-07 03:32] LABS: Hematocrit 29.2 % (37.0-53.0); Hemoglobin 9.5 g/dL (13.5-17.5)
[2020-08-07 03:48] LABS: Magnesium, Blood 2.3 mg/dL (1.6-2.4)
[2020-08-07 03:57] LABS: Albumin, Blood 1.7 g/dL (3.4-5.0); Anion Gap 18 mmol/L (6-16); Blood Urea Nitrogen 155 mg/dL (8-24); Bun/Creatinine Ratio 31.1 (12.0-20.0); CO2, Blood 17 mmol/L (21-32); Calcium, Blood 6.9 mg/dL (8.5-10.1); Chloride, Blood 109 mmol/L (98-108); Creatinine, Blood 4.99 mg/dL (0.60-1.20); Glomerular Filtration Rate 14 (60-); Glucose, Blood 127 mg/dL (70-99); Phosphorus, Blood 6.4 mg/dL (2.5-4.9); Potassium, Blood 3.9 mmol/L (3.5-5.5); Sodium, Blood 144 mmol/L (136-145); Vancomycin, Random 18.9 ug/mL
[2020-08-08 10:55] LABS: Albumin, Blood 1.9 g/dL (3.4-5.0); Albumin/Globulin Ratio 0.8 (0.8-1.8); Bilirubin, Direct 29.5 mg/dL (0.0-0.3); Bilirubin, Indirect 3.5 mg/dL (0.1-0.7); Calcium, Blood 7.1 mg/dL (8.5-10.1); Creatinine, Blood 5.56 mg/dL (0.60-1.20); Globulin, Blood 2.4 g/dL (2.2-4.0); Magnesium, Blood 2.8 mg/dL (1.6-2.4); Potassium, Blood 4.4 mmol/L (3.5-5.5); Total Protein, Blood 4.3 g/dL (6.4-8.2)
[2020-08-08 13:45] LABS: International Normalized Ratio 1.92; Prothrombin Time Results 19.8 Sec (9.7-11.5)
[2020-08-08 13:48] LABS: BASOPHILS ABSOLUTE AUTO 0.22 K/mm3 (0.00-0.23); BASOPHILS PERCENT AUTO 1 % (0-2); EOSINOPHILS ABSOLUTE AUTO 0.31 K/mm3 (0.00-0.68); EOSINOPHILS PERCENT AUTO 1 % (0-6); Hematocrit 29.4 % (37.0-53.0); Hemoglobin 9.3 g/dL (13.5-17.5); IMMATURE GRAN ABSOLUTE AUTO 1.35 K/mm3 (0.00-0.10); IMMATURE GRAN PERCENT AUTO 5 % (0-1); LYMPHOCYTES ABSOLUTE AUTO 1.84 K/mm3 (0.84-5.20); LYMPHOCYTES PERCENT AUTO 7 % (21-46); MONOCYTES ABSOLUTE AUTO 1.45 K/mm3 (0.16-1.47); MONOCYTES PERCENT AUTO 6 % (4-13); Mean Corpuscular HGB 37.2 pg (26.0-34.0); Mean Corpuscular HGB Conc 31.6 g/dL (31.5-36.5); Mean Corpuscular Volume 118 fL (80-100); NEUTROPHILS ABSOLUTE AUTO 20.25 K/mm3 (1.96-9.15); NEUTROPHILS PERCENT AUTO 80 % (41-73); NRBC ABSOLUTE 0.15 K/mm3 (0.00-0.02); NRBC Auto 0.6 /100 WBC (0.0-0.2); Platelet Count 104 K/mm3 (150-400); RDW Coefficient Variation 20.3 % (11.7-14.2); RDW Standard Deviation 87.2 fL (35.1-46.3); White Blood Cell Count 25.42 K/mm3 (4.00-11.30)
[2020-08-08 13:50] LABS: Mean Platelet Volume 14.5 fL (9.1-12.4)
[2020-08-09 04:09] LABS: Hematocrit 25.9 % (37.0-53.0); Hemoglobin 8.2 g/dL (13.5-17.5)
[2020-08-09 05:38] LABS: Albumin, Blood 2.3 g/dL (3.4-5.0); Anion Gap 18 mmol/L (6-16); CO2, Blood 18 mmol/L (21-32); Calcium, Blood 6.8 mg/dL (8.5-10.1); Chloride, Blood 103 mmol/L (98-108); Creatinine, Blood 5.75 mg/dL (0.60-1.20); Glomerular Filtration Rate 11 (60-); Glucose, Blood 131 mg/dL (70-99); Potassium, Blood 4.2 mmol/L (3.5-5.5); Sodium, Blood 139 mmol/L (136-145)
[2020-08-09 05:42] LABS: Blood Urea Nitrogen 174 mg/dL (8-24); Bun/Creatinine Ratio 30.3 (12.0-20.0); Phosphorus, Blood 8.4 mg/dL (2.5-4.9)
[2020-08-10 04:24] LABS: Hematocrit 26.1 % (37.0-53.0); Hemoglobin 8.3 g/dL (13.5-17.5); Mean Corpuscular HGB 37.7 pg (26.0-34.0); Mean Corpuscular HGB Conc 31.8 g/dL (31.5-36.5); Mean Corpuscular Volume 119 fL (80-100); NRBC ABSOLUTE 0.12 K/mm3 (0.00-0.02); NRBC Auto 0.5 /100 WBC (0.0-0.2); Platelet Count 142 K/mm3 (150-400); RDW Coefficient Variation 21.2 % (11.7-14.2); RDW Standard Deviation 90.6 fL (35.1-46.3); White Blood Cell Count 23.55 K/mm3 (4.00-11.30)
[2020-08-10 04:28] LABS: Mean Platelet Volume 13.5 fL (9.1-12.4)
[2020-08-10 04:38] LABS: International Normalized Ratio 1.96; Prothrombin Time Results 20.2 Sec (9.7-11.5)
[2020-08-10 04:42] LABS: BAND PERCENT MAN 4 % (0-8); BASOPHILS PERCENT MAN 0 % (0-2); EOSINOPHILS ABSOLUTE MAN 0.23 K/mm3 (0.00-0.68); EOSINOPHILS PERCENT MAN 1 % (0-6); LYMPHOCYTES ABSOLUTE MAN 1.41 K/mm3 (0.84-5.20); LYMPHOCYTES PERCENT MAN 6 % (21-46); MONOCYTES PERCENT MAN 3 % (4-13); NEUTROPHILS ABSOLUTE MAN 21.19 K/mm3 (1.96-9.15); SEG NEUTROPHILS PERCENT MAN 86 % (41-73); TOTAL CELLS COUNTED 100
[2020-08-10 04:51] LABS: Magnesium, Blood 3.4 mg/dL (1.6-2.4)
[2020-08-10 05:30] LABS: Albumin, Blood 2.6 g/dL (3.4-5.0); Albumin/Globulin Ratio 1.2 (0.8-1.8); Bilirubin, Total 35.2 mg/dL (0.1-1.0); Bun/Creatinine Ratio 31.1 (12.0-20.0); Calcium, Blood 7.3 mg/dL (8.5-10.1); Creatinine, Blood 5.88 mg/dL (0.60-1.20); Globulin, Blood 2.1 g/dL (2.2-4.0); Phosphorus, Blood 10.2 mg/dL (2.5-4.9); Potassium, Blood 3.7 mmol/L (3.5-5.5); Total Protein, Blood 4.7 g/dL (6.4-8.2)
[2020-08-11 03:40] LABS: BASOPHILS PERCENT AUTO 1 % (0-2); EOSINOPHILS ABSOLUTE AUTO 0.75 K/mm3 (0.00-0.68); EOSINOPHILS PERCENT AUTO 4 % (0-6); Hematocrit 26.4 % (37.0-53.0); Hemoglobin 8.3 g/dL (13.5-17.5); IMMATURE GRAN ABSOLUTE AUTO 0.95 K/mm3 (0.00-0.10); IMMATURE GRAN PERCENT AUTO 5 % (0-1); LYMPHOCYTES PERCENT AUTO 9 % (21-46); MONOCYTES ABSOLUTE AUTO 0.88 K/mm3 (0.16-1.47); MONOCYTES PERCENT AUTO 5 % (4-13); Mean Corpuscular HGB 37.4 pg (26.0-34.0); Mean Corpuscular HGB Conc 31.4 g/dL (31.5-36.5); Mean Corpuscular Volume 119 fL (80-100); Mean Platelet Volume 12.7 fL (9.1-12.4); NEUTROPHILS ABSOLUTE AUTO 15.16 K/mm3 (1.96-9.15); NEUTROPHILS PERCENT AUTO 77 % (41-73); NRBC ABSOLUTE 0.07 K/mm3 (0.00-0.02); NRBC Auto 0.4 /100 WBC (0.0-0.2); Platelet Count 170 K/mm3 (150-400); RDW Coefficient Variation 20.8 % (11.7-14.2); RDW Standard Deviation 89.5 fL (35.1-46.3); Red Blood Cell Count 2.22 M/mm3 (4.30-5.90); White Blood Cell Count 19.64 K/mm3 (4.00-11.30)
[2020-08-11 03:56] LABS: International Normalized Ratio 1.97; Prothrombin Time Results 20.3 Sec (9.7-11.5)
[2020-08-11 04:09] LABS: Albumin, Blood 2.9 g/dL (3.4-5.0); Albumin/Globulin Ratio 1.6 (0.8-1.8); Calcium, Blood 8.5 mg/dL (8.5-10.1); Creatinine, Blood 5.97 mg/dL (0.60-1.20); Globulin, Blood 1.8 g/dL (2.2-4.0); Magnesium, Blood 3.4 mg/dL (1.6-2.4); Potassium, Blood 3.5 mmol/L (3.5-5.5); Total Protein, Blood 4.7 g/dL (6.4-8.2)
[2020-08-11 04:13] LABS: Bilirubin, Total 34.4 mg/dL (0.1-1.0); Bun/Creatinine Ratio 30.3 (12.0-20.0); Phosphorus, Blood 10.2 mg/dL (2.5-4.9)
[2020-08-11 05:20] LABS: PCO2 Arterial 30.4 mmHg (35-45); PO2 Arterial 65.2 mmHg (80-100); pH Blood Arterial 7.47 (7.35-7.45)
[2020-08-12 04:45] LABS: PCO2 Arterial 31.4 mmHg (35-45); PO2 Arterial 67.5 mmHg (80-100); pH Blood Arterial 7.45 (7.35-7.45)
[2020-08-12 05:14] LABS: BASOPHILS PERCENT AUTO 1 % (0-2); EOSINOPHILS ABSOLUTE AUTO 1.04 K/mm3 (0.00-0.68); EOSINOPHILS PERCENT AUTO 6 % (0-6); Hematocrit 27.9 % (37.0-53.0); Hemoglobin 8.6 g/dL (13.5-17.5); IMMATURE GRAN ABSOLUTE AUTO 0.67 K/mm3 (0.00-0.10); IMMATURE GRAN PERCENT AUTO 4 % (0-1); LYMPHOCYTES ABSOLUTE AUTO 1.72 K/mm3 (0.84-5.20); LYMPHOCYTES PERCENT AUTO 10 % (21-46); MONOCYTES ABSOLUTE AUTO 0.93 K/mm3 (0.16-1.47); MONOCYTES PERCENT AUTO 5 % (4-13); Mean Corpuscular HGB 37.4 pg (26.0-34.0); Mean Corpuscular HGB Conc 30.8 g/dL (31.5-36.5); Mean Corpuscular Volume 121 fL (80-100); Mean Platelet Volume 12.7 fL (9.1-12.4); NEUTROPHILS ABSOLUTE AUTO 13.36 K/mm3 (1.96-9.15); NEUTROPHILS PERCENT AUTO 75 % (41-73); NRBC ABSOLUTE 0.05 K/mm3 (0.00-0.02); NRBC Auto 0.3 /100 WBC (0.0-0.2); Platelet Count 197 K/mm3 (150-400); RDW Coefficient Variation 19.9 % (11.7-14.2); RDW Standard Deviation 88.9 fL (35.1-46.3); White Blood Cell Count 17.92 K/mm3 (4.00-11.30)
[2020-08-12 05:26] LABS: International Normalized Ratio 1.92; Prothrombin Time Results 19.8 Sec (9.7-11.5)
[2020-08-12 05:55] LABS: Albumin, Blood 3.2 g/dL (3.4-5.0); Calcium, Blood 8.5 mg/dL (8.5-10.1); Creatinine, Blood 5.99 mg/dL (0.60-1.20); Magnesium, Blood 3.6 mg/dL (1.6-2.4); Potassium, Blood 3.5 mmol/L (3.5-5.5)
[2020-08-12 06:25] LABS: Albumin/Globulin Ratio 1.8 (0.8-1.8); Bilirubin, Total 35.1 mg/dL (0.1-1.0); Bun/Creatinine Ratio 30.7 (12.0-20.0); Globulin, Blood 1.8 g/dL (2.2-4.0); Phosphorus, Blood 10.8 mg/dL (2.5-4.9)
[2020-08-13 04:49] LABS: BASOPHILS ABSOLUTE AUTO 0.21 K/mm3 (0.00-0.23); BASOPHILS PERCENT AUTO 1 % (0-2); EOSINOPHILS ABSOLUTE AUTO 0.87 K/mm3 (0.00-0.68); EOSINOPHILS PERCENT AUTO 4 % (0-6); Hematocrit 30.2 % (37.0-53.0); Hemoglobin 9.1 g/dL (13.5-17.5); IMMATURE GRAN ABSOLUTE AUTO 0.47 K/mm3 (0.00-0.10); IMMATURE GRAN PERCENT AUTO 2 % (0-1); LYMPHOCYTES ABSOLUTE AUTO 1.82 K/mm3 (0.84-5.20); LYMPHOCYTES PERCENT AUTO 9 % (21-46); MONOCYTES ABSOLUTE AUTO 0.95 K/mm3 (0.16-1.47); MONOCYTES PERCENT AUTO 5 % (4-13); Mean Corpuscular HGB 36.8 pg (26.0-34.0); Mean Corpuscular HGB Conc 30.1 g/dL (31.5-36.5); Mean Corpuscular Volume 122 fL (80-100); NEUTROPHILS ABSOLUTE AUTO 15.73 K/mm3 (1.96-9.15); NEUTROPHILS PERCENT AUTO 79 % (41-73); NRBC ABSOLUTE 0.02 K/mm3 (0.00-0.02); NRBC Auto 0.1 /100 WBC (0.0-0.2); Platelet Count 229 K/mm3 (150-400); RDW Coefficient Variation 19.2 % (11.7-14.2); RDW Standard Deviation 86.9 fL (35.1-46.3); Red Blood Cell Count 2.47 M/mm3 (4.30-5.90); White Blood Cell Count 20.05 K/mm3 (4.00-11.30)
[2020-08-13 05:06] LABS: Albumin, Blood 3.3 g/dL (3.4-5.0); Anion Gap 18 mmol/L (6-16); CO2, Blood 24 mmol/L (21-32); Calcium, Blood 9.2 mg/dL (8.5-10.1); Chloride, Blood 111 mmol/L (98-108); Creatinine, Blood 5.92 mg/dL (0.60-1.20); Glomerular Filtration Rate 11 (60-); Glucose, Blood 137 mg/dL (70-99); Magnesium, Blood 3.9 mg/dL (1.6-2.4); Potassium, Blood 3.3 mmol/L (3.5-5.5); Sodium, Blood 153 mmol/L (136-145)
[2020-08-13 05:26] LABS: Blood Urea Nitrogen 205 mg/dL (8-24); Bun/Creatinine Ratio 34.6 (12.0-20.0); Phosphorus, Blood 11.2 mg/dL (2.5-4.9)
[2020-08-14 05:46] LABS: BASOPHILS ABSOLUTE AUTO 0.21 K/mm3 (0.00-0.23); BASOPHILS PERCENT AUTO 1 % (0-2); EOSINOPHILS ABSOLUTE AUTO 0.95 K/mm3 (0.00-0.68); EOSINOPHILS PERCENT AUTO 5 % (0-6); Hematocrit 29.3 % (37.0-53.0); IMMATURE GRAN PERCENT AUTO 2 % (0-1); LYMPHOCYTES ABSOLUTE AUTO 1.87 K/mm3 (0.84-5.20); LYMPHOCYTES PERCENT AUTO 10 % (21-46); MONOCYTES ABSOLUTE AUTO 0.92 K/mm3 (0.16-1.47); MONOCYTES PERCENT AUTO 5 % (4-13); Mean Corpuscular HGB 37.7 pg (26.0-34.0); Mean Corpuscular HGB Conc 30.7 g/dL (31.5-36.5); Mean Corpuscular Volume 123 fL (80-100); Mean Platelet Volume 12.2 fL (9.1-12.4); NEUTROPHILS ABSOLUTE AUTO 15.37 K/mm3 (1.96-9.15); NEUTROPHILS PERCENT AUTO 78 % (41-73); NRBC ABSOLUTE 0.02 K/mm3 (0.00-0.02); NRBC Auto 0.1 /100 WBC (0.0-0.2); Platelet Count 231 K/mm3 (150-400); RDW Coefficient Variation 18.2 % (11.7-14.2); RDW Standard Deviation 83.5 fL (35.1-46.3); Red Blood Cell Count 2.39 M/mm3 (4.30-5.90); White Blood Cell Count 19.62 K/mm3 (4.00-11.30)
[2020-08-14 06:20] LABS: Magnesium, Blood 3.4 mg/dL (1.6-2.4)
[2020-08-14 06:42] LABS: Albumin, Blood 3.1 g/dL (3.4-5.0); Albumin/Globulin Ratio 1.5 (0.8-1.8); Bilirubin, Total 37.1 mg/dL (0.1-1.0); Bun/Creatinine Ratio 34.3 (12.0-20.0); Calcium, Blood 9.2 mg/dL (8.5-10.1); Globulin, Blood 2.1 g/dL (2.2-4.0); Phosphorus, Blood 11.7 mg/dL (2.5-4.9); Potassium, Blood 3.6 mmol/L (3.5-5.5); Total Protein, Blood 5.2 g/dL (6.4-8.2)
[2020-08-15 04:22] LABS: BASOPHILS ABSOLUTE AUTO 0.19 K/mm3 (0.00-0.23); BASOPHILS PERCENT AUTO 1 % (0-2); EOSINOPHILS ABSOLUTE AUTO 0.99 K/mm3 (0.00-0.68); EOSINOPHILS PERCENT AUTO 4 % (0-6); Hematocrit 31.4 % (37.0-53.0); Hemoglobin 9.6 g/dL (13.5-17.5); IMMATURE GRAN ABSOLUTE AUTO 0.29 K/mm3 (0.00-0.10); IMMATURE GRAN PERCENT AUTO 1 % (0-1); LYMPHOCYTES ABSOLUTE AUTO 1.43 K/mm3 (0.84-5.20); LYMPHOCYTES PERCENT AUTO 6 % (21-46); MONOCYTES ABSOLUTE AUTO 1.05 K/mm3 (0.16-1.47); MONOCYTES PERCENT AUTO 5 % (4-13); Mean Corpuscular HGB 36.6 pg (26.0-34.0); Mean Corpuscular HGB Conc 30.6 g/dL (31.5-36.5); Mean Corpuscular Volume 120 fL (80-100); Mean Platelet Volume 12.6 fL (9.1-12.4); NEUTROPHILS ABSOLUTE AUTO 19.18 K/mm3 (1.96-9.15); NEUTROPHILS PERCENT AUTO 83 % (41-73); NRBC ABSOLUTE 0.02 K/mm3 (0.00-0.02); NRBC Auto 0.1 /100 WBC (0.0-0.2); Platelet Count 264 K/mm3 (150-400); RDW Coefficient Variation 17.7 % (11.7-14.2); RDW Standard Deviation 79.5 fL (35.1-46.3); Red Blood Cell Count 2.62 M/mm3 (4.30-5.90); White Blood Cell Count 23.13 K/mm3 (4.00-11.30)
[2020-08-15 04:45] LABS: Magnesium, Blood 3.6 mg/dL (1.6-2.4)
[2020-08-15 05:55] LABS: Calcium, Blood 9.2 mg/dL (8.5-10.1); Creatinine, Blood 5.82 mg/dL (0.60-1.20); Phosphorus, Blood 10.7 mg/dL (2.5-4.9); Potassium, Blood 3.5 mmol/L (3.5-5.5)
[2020-08-16 04:48] LABS: Hemoglobin 9.2 g/dL (13.5-17.5)
[2020-08-16 05:05] LABS: Anion Gap 20 mmol/L (6-16); CO2, Blood 20 mmol/L (21-32); Calcium, Blood 9.3 mg/dL (8.5-10.1); Chloride, Blood 110 mmol/L (98-108); Creatinine, Blood 6.09 mg/dL (0.60-1.20); Glomerular Filtration Rate 11 (60-); Glucose, Blood 124 mg/dL (70-99); Magnesium, Blood 3.7 mg/dL (1.6-2.4); Potassium, Blood 3.4 mmol/L (3.5-5.5); Sodium, Blood 150 mmol/L (136-145)
[2020-08-16 05:06] LABS: Albumin, Blood 2.5 g/dL (3.4-5.0)
[2020-08-16 05:31] LABS: Blood Urea Nitrogen 216 mg/dL (8-24); Bun/Creatinine Ratio 35.5 (12.0-20.0); Phosphorus, Blood 10.1 mg/dL (2.5-4.9)
[2020-08-17 05:11] LABS: Hematocrit 30.1 % (37.0-53.0); Hemoglobin 9.3 g/dL (13.5-17.5)
[2020-08-17 06:18] LABS: Albumin, Blood 2.3 g/dL (3.4-5.0); Anion Gap 22 mmol/L (6-16); CO2, Blood 16 mmol/L (21-32); Calcium, Blood 8.7 mg/dL (8.5-10.1); Chloride, Blood 108 mmol/L (98-108); Creatinine, Blood 6.33 mg/dL (0.60-1.20); Glomerular Filtration Rate 10 (60-); Glucose, Blood 134 mg/dL (70-99); Magnesium, Blood 3.6 mg/dL (1.6-2.4); Potassium, Blood 3.8 mmol/L (3.5-5.5); Sodium, Blood 146 mmol/L (136-145)
[2020-08-17 06:41] LABS: Blood Urea Nitrogen 224 mg/dL (8-24); Bun/Creatinine Ratio 35.4 (12.0-20.0); Phosphorus, Blood 9.8 mg/dL (2.5-4.9)
== END 2020-08-17 17:11 | DRG 432 ==
LOC: ER 16:59 → ICUW 22:10 → ICUE 22:10 → PCU 08-14 15:50
PROVIDERS: Family Medicine; Internal Medicine Critical Care Medicine; Internal Medicine Nephrology; Internal Medicine Pulmonary Disease; Nurse Practitioner Acute Care; Physician Assistant; ADMIT Internal Medicine
PROC: 0W9G30Z Drainage of Peritoneal Cavity with Drainage Device, Percutaneous Approach (ICD-10-PCS; principal; 2020-07-27)
PROC: 3E043XZ Introduction of Vasopressor into Central Vein, Percutaneous Approach (ICD-10-PCS; 2020-07-28)
PROC: 02HV33Z Insertion of Infusion Device into Superior Vena Cava, Percutaneous Approach (ICD-10-PCS; 2020-07-28)
PROC: 0BH18EZ Insertion of Endotracheal Airway into Trachea, Via Natural or Artificial Opening Endoscopic (ICD-10-PCS; 2020-07-28)
PROC: 5A1955Z Respiratory Ventilation, Greater than 96 Consecutive Hours (ICD-10-PCS; 2020-07-28)
PROC: 5A09357 Assistance with Respiratory Ventilation, Less than 24 Consecutive Hours, Continuous Positive Airway Pressure (ICD-10-PCS; 2020-07-28)
PROC: 0F9430Z Drainage of Gallbladder with Drainage Device, Percutaneous Approach (ICD-10-PCS; 2020-07-29)
PROC: 0W9G3ZZ Drainage of Peritoneal Cavity, Percutaneous Approach (ICD-10-PCS; 2020-07-30)
DX: K70.41 Alcoholic hepatic failure with coma (principal); G92 Toxic encephalopathy; J96.01 Acute respiratory failure with hypoxia; J15.1 Pneumonia due to Pseudomonas; N17.0 Acute kidney failure with tubular necrosis; A41.9 Sepsis, unspecified organism; R65.21 Severe sepsis with septic shock; E87.1 Hypo-osmolality and hyponatremia; N17.9 Acute kidney failure, unspecified; K80.00 Calculus of gallbladder with acute cholecystitis without obstruction; E87.2 Acidosis; E87.0 Hyperosmolality and hypernatremia; E44.0 Moderate protein-calorie malnutrition; Z51.5 Encounter for palliative care; F10.10 Alcohol abuse, uncomplicated; G40.909 Epilepsy, unspecified, not intractable, without status epilepticus; E80.6 Other disorders of bilirubin metabolism; G89.29 Other chronic pain; D69.6 Thrombocytopenia, unspecified; E88.09 Other disorders of plasma-protein metabolism, not elsewhere classified; I95.9 Hypotension, unspecified; K70.30 Alcoholic cirrhosis of liver without ascites; M54.9 Dorsalgia, unspecified; E83.39 Other disorders of phosphorus metabolism; Y90.6 Blood alcohol level of 120-199 mg/100 ml; D63.8 Anemia in other chronic diseases classified elsewhere; K70.11 Alcoholic hepatitis with ascites; Z78.1 Physical restraint status
CPT/HCPCS: 31500; 31720; 36415; 36569; 36600; 49083; 49405; 51702; 70450; 71045; 74176; 76705; 80048; 80053; 80069; 80074; 80076; 80202; 81001; 82140; 82248; 82330; 82530; 82533; 82803; 82947; 83605; 83690; 83735; 83930; 84100; 84132; 84295; 84300; 84439; 84443; 84481; 84550; 85014; 85018; 85025; 85610; 85730; 86704; 86708; 86803; 86850; 86900; 86901; 87040; 87070; 87077; 87086; 87103; 87186; 87205; 87340; 87493; 89051; 93005; 93010; 94002; 94003; 94640; 94660; 94667; 94668; 94760; 95819; 96361; 96374; 97110; 97112; 97161; 97165; 97530; 99285-25; A9270-GY; C1751; G0480; J0696; J0881; J1450; J1953; J2354; J2370; J2405; J2543; J2704; J2920; J3010; J3370; J3430; J3480; J7030; J7040; J7050; J7060; J7070; J7131; P9041; P9046; U0003